=== PATIENT | male | born 1960 | race Caucasian/White ===

== ENCOUNTER 2016-10-29 16:07 | Emergency (ER) | payer MEDICARE ==
--- NOTE | 2016-10-29 16:44 | UC ---
Skin Complaint HPI - HPI Summary HPI Summary: patient has irritation on the hairline from his hat, an infected thumb from a split in his skin on right thumb. and a scab on left arm from a healing burn that is healing well. - History of Current Complaint Chief Complaint: UCSkin Time Seen by Provider: 10/29/16 16:22 Stated Complaint: SKIN COMPLAINT Hx Obtained From: Patient Onset/Duration: Sudden Onset, Lasting Days Skin Exposure Onset/Duration: Days Ago Timing: Constant Onset Severity: Moderate Current Severity: Moderate Pain Intensity: 3 Pain Scale Used: 0-10 Numeric Location: Discrete Character: Pruritus, Raised Aggravating: Wind, Clothing Alleviating: Nothing Associated Signs & Symptoms: Positive: Negative - Allergy/Home Medications Allergies/Adverse Reactions: Allergies Allergy/AdvReac Type Severity Reaction Status Date / Time Oxycodone [From Percocet] Allergy Unknown Unknown Verified 10/29/16 16:19 Reaction Details pollen Allergy Congestion Uncoded 10/29/16 16:19 Home Medications: Home Medications Aspirin EC Low Dose* [Ecotrin EC Low Dose*] 81 mg PO DAILY 10/29/16 [History Confirmed 10/29/16] Review of Systems Constitutional: Fever Skin: Rash, Other - scabbed burn, split skin on thumb Eyes: Negative ENT: Negative Respiratory: Negative Cardiovascular: Negative Gastrointestinal: Negative Genitourinary: Negative Motor: Negative Neurovascular: Negative Musculoskeletal: Negative Neurological: Negative Psychological: Negative All Other Systems Reviewed And Are Negative: Yes PMH/Surg Hx/FS Hx/Imm Hx Previously Healthy: Yes Endocrine History Of: Reports: Thyroid Disease Denies: Diabetes Cardiovascular History Of: Reports: Cardiac Disorders - MVP Neurological History Of: Reports: TIA - Surgical History Surgical History: Yes Surgery Procedure, Year, and Place: chest tube placement, back surgery (patient unclear about operation, fusion?); right leg benign tumor - Family History Known Family History: Positive: Hypertension - Social History Alcohol Use: Rare Substance Use Type: Marijuana Substance Use Comment - Amount & Last Used: occasional Smoking Status (MU): Former Smoker - Immunization History Most Recent Influenza Vaccination: none Most Recent Tetanus Shot: 10/10/14 Most Recent Pneumonia Vaccination: never Physical Exam Triage Information Reviewed: Yes Appearance: Well-Appearing, Well-Nourished, Pain Distress Vital Signs: Initial Vital Signs Temp 98.5 F 10/29/16 16:13 Pulse 65 10/29/16 16:13 Resp 18 10/29/16 16:13 BP 141/74 10/29/16 16:13 Pulse Ox 96 10/29/16 16:13 Vital Signs Reviewed: Yes Eye Exam: Normal Eyes: Positive: Conjunctiva Clear ENT Exam: Normal ENT: Positive: Normal ENT inspection, Pharynx normal, TMs normal Dental Exam: Normal Neck exam: Normal Neck: Positive: Supple, Nontender, No Lymphadenopathy Respiratory Exam: Normal Respiratory: Positive: Chest non-tender, Lungs clear, Normal breath sounds Cardiovascular Exam: Normal Cardiovascular: Positive: RRR, No Murmur, Pulses Normal Abdominal Exam: Normal Abdomen Description: Positive: Nontender, No Organomegaly, Soft Bowel Sounds: Positive: Present Musculoskeletal Exam: Normal Musculoskeletal: Positive: Strength Intact, ROM Intact, No Edema Neurological Exam: Normal Neurological: Positive: Alert, Muscle Tone Normal Psychological Exam: Normal Skin: Positive: significant lesion(s) - oozing wound from split on thumb, red raised patch of skin accross the hairline where his hat rubbed. Course/Dx - Course Course Of Treatment: hx obtained, exam performed, medication prescribed. - Differential Diagnoses - Skin Complaint Differential Diagnoses: Abscess, Cellulitis, Drug Rash, Scabies, Urticaria - Diagnoses Provider Diagnoses: skin infection. contact dermatitis Discharge - Discharge Plan Condition: Stable Disposition: HOME Prescriptions: Hydrocortisone 2.5% CREAM(NF) 1 applic TOPICAL BID #1 tube Mupirocin 2% CREAM* [Bactroban 2% CREAM*] 1 applic TOPICAL BID #1 tube Patient Education Materials: Contact Dermatitis (ED) Additional Instructions: take the medication as prescribed. Keep your hands clean and dry, continue to use the lanolin on the dry skin to heal the cracked areas.
[2016-10-29 16:51] VITALS: BP 141/74
== END 2016-10-29 16:57 | disposition home or self-care (01) ==
LOC: UCCORT 16:07
DX: L08.9 Local infection of the skin and subcutaneous tissue, unspecified (principal); L25.9 Unspecified contact dermatitis, unspecified cause; F12.90 Cannabis use, unspecified, uncomplicated; Z87.891 Personal history of nicotine dependence; Z79.82 Long term (current) use of aspirin; Z88.5 Allergy status to narcotic agent
CPT/HCPCS: 99212; G0463

== ENCOUNTER 2017-07-28 11:03 | Emergency (ER) | payer MEDICARE ==
[2017-07-28 11:17] VITALS: BP 121/77
--- NOTE | 2017-07-28 12:05 | UC ---
Throat Pain/Nasal Juanito HPI - HPI Summary HPI Summary: FIVE DAYS OF SINUS CONGESTION, SORE THROAT, COUGH. SINUS PRESSURE. WORSE LAST TWO DAYS. NO FEVER. - History of Current Complaint Chief Complaint: UCRespiratory Stated Complaint: COUGH,SINUS Time Seen by Provider: 07/28/17 11:25 Hx Obtained From: Patient Onset/Duration: Gradual Onset, Lasting Days Severity: Moderate Pain Intensity: 9 Pain Scale Used: 0-10 Numeric Cough: Productive Associated Signs & Symptoms: Positive: Hoarseness, Sinus Discomfort, Nasal Discharge - Epiglottits Risk Factors Epiglottis Risk Factors: Negative - Allergies/Home Medications Allergies/Adverse Reactions: Allergies Allergy/AdvReac Type Severity Reaction Status Date / Time Oxycodone [From Percocet] Allergy Unknown Unknown Verified 07/28/17 11:17 Reaction Details pollen Allergy Congestion Uncoded 07/28/17 11:17 PMH/Surg Hx/FS Hx/Imm Hx Previously Healthy: Yes - Surgical History Surgical History: Yes Surgery Procedure, Year, and Place: chest tube placement, back surgery (patient unclear about operation, fusion?); right leg benign tumor - Family History Known Family History: Positive: Hypertension Negative: Respiratory Disease - Social History Occupation: Employed Full-time Lives: With Family Alcohol Use: Occasionally Substance Use Type: None Substance Use Comment - Amount & Last Used: last night Smoking Status (MU): Former Smoker - Immunization History Most Recent Influenza Vaccination: no Most Recent Tetanus Shot: 10/10/14 Most Recent Pneumonia Vaccination: never Review of Systems Constitutional: Negative Skin: Negative Eyes: Negative ENT: Ear Ache, Nasal Discharge, Sinus Congestion, Sinus Pain/Tenderness Respiratory: Cough Cardiovascular: Negative Gastrointestinal: Negative Genitourinary: Negative Motor: Negative Neurovascular: Negative Musculoskeletal: Negative Neurological: Negative Psychological: Negative Is Patient Immunocompromised?: No All Other Systems Reviewed And Are Negative: Yes Physical Exam Triage Information Reviewed: Yes Appearance: No Pain Distress, Well-Nourished, Ill-Appearing Vital Signs: Initial Vital Signs Temp 98.8 F 07/28/17 11:13 Pulse 68 07/28/17 11:13 Resp 15 07/28/17 11:13 BP 121/77 07/28/17 11:13 Pulse Ox 99 07/28/17 11:13 Vital Signs Reviewed: Yes Eye Exam: Normal ENT: Positive: Hearing grossly normal, Nasal congestion, TM bulging, TM dull Dental Exam: Normal Neck exam: Normal Neck: Positive: Supple, Nontender, No Lymphadenopathy Respiratory Exam: Other - COUGH Respiratory: Positive: Chest non-tender, Lungs clear, Normal breath sounds, No respiratory distress, No accessory muscle use Cardiovascular Exam: Normal Cardiovascular: Positive: RRR, No Murmur, Pulses Normal, Brisk Capillary Refill Abdominal Exam: Normal Musculoskeletal Exam: Normal Musculoskeletal: Positive: Strength Intact, ROM Intact Neurological Exam: Normal Psychological Exam: Normal Skin Exam: Normal Throat Pain/Nasal Course/Dx - Differential Dx/Diagnosis Differential Diagnosis/HQI/PQRI: Influenza, Otitis Media, Pharyngitis, Sinusitis , Tonsillitis, URI Provider Diagnoses: SINUSITIS; UPPER RESPIRATORY INFECTION Discharge - Discharge Plan Condition: Stable Disposition: HOME Prescriptions: Amoxicillin/Clavulanate TAB* [Augmentin TAB 875*] 875 mg PO BID #20 tab Benzonatate CAP* [Tessalon 100 MG CAP*] 100 mg PO TID PRN #15 cap PRN Reason: Cough Fluticasone NASAL SPRAY 50MCG* [Flonase NASAL SPRAY 50MCG*] 2 spray BOTH NARES DAILY #1 btl Patient Education Materials: Sinusitis (ED), Upper Respiratory Infection (ED) Referrals: Rigoberto Chung MD [Primary Care Provider] -
== END 2017-07-28 11:52 | disposition home or self-care (01) ==
LOC: UCCORT 11:03
DX: J32.9 Chronic sinusitis, unspecified (principal); J06.9 Acute upper respiratory infection, unspecified; J30.1 Allergic rhinitis due to pollen; Z88.6 Allergy status to analgesic agent; Z87.891 Personal history of nicotine dependence
CPT/HCPCS: 99212; G0463

== ENCOUNTER 2017-12-05 14:00 | Emergency (ER) | payer MEDICARE ==
[2017-12-05 14:57] VITALS: BP 133/67
--- NOTE | 2017-12-05 15:11 | UC ---
General HPI - HPI Summary HPI Summary: PT IS C/O SUDDEN ONSET HEAD CONGESTION, COUGH, CHEST CONGESTION, BODYACHES AND SUBJECTIVE F/C'S. STATES HE IS STAYING WITH HIS SON, SON'S GIRLFRIEND HAS THE FLU. + WHEEZING BUT NO SOB OR HX LUNG DZ. - History of Current Complaint Chief Complaint: UCRespiratory Stated Complaint: COUGH,CONGESTION Time Seen by Provider: 12/05/17 14:58 Hx Obtained From: Patient Onset/Duration: Sudden Onset Timing: Constant Pain Intensity: 10 Associated Signs & Symptoms: Positive: Cough, Fever, Headache, Wheezing. Negative: Chest Pain, Diarrhea, Dysuria, Diaphoresis, Nausea, SOB - Allergy/Home Medications Allergies/Adverse Reactions: Allergies Allergy/AdvReac Type Severity Reaction Status Date / Time oxycodone Allergy See Comment Verified 12/05/17 14:52 PMH/Surg Hx/FS Hx/Imm Hx Endocrine History: Thyroid Disease - Surgical History Surgical History: Yes Surgery Procedure, Year, and Place: chest tube placement, back surgery (patient unclear about operation, fusion?); right leg benign tumor - Family History Known Family History: Positive: Hypertension Negative: Respiratory Disease - Social History Lives: With Family Alcohol Use: Rare Substance Use Type: None Substance Use Comment - Amount & Last Used: last night Smoking Status (MU): Former Smoker - Immunization History Most Recent Influenza Vaccination: no Most Recent Tetanus Shot: 10/10/14 Most Recent Pneumonia Vaccination: never Vaccination Up to Date: Yes Review of Systems Constitutional: Fever, Chills ENT: Nasal Discharge, Sinus Congestion, Sinus Pain/Tenderness Respiratory: Cough Neurological: Headache Is Patient Immunocompromised?: No All Other Systems Reviewed And Are Negative: Yes Physical Exam Triage Information Reviewed: Yes Appearance: Well-Appearing Vital Signs: Initial Vital Signs Temp 98.2 F 12/05/17 14:53 Pulse 61 12/05/17 14:53 Resp 16 12/05/17 14:53 BP 133/67 12/05/17 14:53 Pulse Ox 97 12/05/17 14:53 Vital Signs Reviewed: Yes Eye Exam: Normal ENT: Positive: Pharynx normal, Nasal congestion, TMs normal. Negative: Nasal drainage, Sinus tenderness Respiratory: Positive: Lungs clear, Normal breath sounds, No respiratory distress, Other: - COUGH IS CONGESTED Abdomen Description: Positive: Nontender, No Organomegaly, Soft Bowel Sounds: Positive: Present Neurological: Positive: Alert Psychological: Positive: Age Appropriate Behavior Skin Exam: Normal Course/Dx - Course Course Of Treatment: nothing on exam to suggest bacterial infection thus no antibiotic. Abrupt onset and s/s's are GAYATHRI, will tx atamiflu and albuterol - Differential Dx - Multi-Symptom Provider Diagnoses: Influenza like illness Discharge - Discharge Plan Condition: Stable Disposition: HOME Prescriptions: Albuterol HFA INHALER* [Ventolin HFA Inhaler*] 2 puff INH Q6H 14 Days #1 mdi Oseltamivir CAP* [Tamiflu CAP*] 75 mg PO BID 5 Days #10 cap Patient Education Materials: Influenza (ED) Referrals: Non Staff,Doctor [Primary Care Provider] - Additional Instructions: FOLLOW UP WITH YOUR DOCTOR, DR BARNES IN 5 DAYS FOR A RECHECK OR SOONER IF WORSE.
== END 2017-12-05 15:18 | disposition home or self-care (01) ==
LOC: UCCORT 14:00
DX: R09.81 Nasal congestion (principal); R05 Cough; R09.89 Other specified symptoms and signs involving the circulatory and respiratory systems; R52 Pain, unspecified; R50.9 Fever, unspecified; Z87.891 Personal history of nicotine dependence
CPT/HCPCS: 99212; G0463

== ENCOUNTER 2018-08-09 12:04 | Emergency (ER) | payer MEDICARE ==
[2018-08-09 13:06] VITALS: BP 119/73
--- NOTE | 2018-08-09 13:16 | UC ---
General HPI - HPI Summary HPI Summary: PT C/O SORE THROAT, EARS CLOGGED, SINUS PAIN WITH CONGESTION AND GREEN DRAINAGE PLUS COUGH AND CHEST CONGESTION BUT NO CP. SUBJECTIVE F/C'S. NO HX ASTHMA OR COPD. OCCASIONAL WHEEZING. ILL FOR OVER A WEEK. - History of Current Complaint Chief Complaint: UCRespiratory Stated Complaint: SINUSES, LEFT EAR PAIN Time Seen by Provider: 08/09/18 13:04 Hx Obtained From: Patient Onset/Duration: Gradual Onset Timing: Constant Pain Intensity: 9 Associated Signs & Symptoms: Positive: Cough, Fever, Wheezing. Negative: Chest Pain, SOB - Allergy/Home Medications Allergies/Adverse Reactions: Allergies Allergy/AdvReac Type Severity Reaction Status Date / Time oxycodone Allergy See Comment Verified 08/09/18 12:56 Home Medications: Home Medications Aspirin 81 mg CHEW TAB* [Aspirin Low Dose TAB*] 81 mg PO DAILY 08/09/18 [ History Confirmed 08/09/18] Levothyroxine TAB* [Synthroid TAB*] 88 mcg PO DAILY 08/09/18 [History Confirmed 08/09/18] PMH/Surg Hx/FS Hx/Imm Hx Endocrine History: Thyroid Disease - Surgical History Surgical History: Yes Surgery Procedure, Year, and Place: chest tube placement, back surgery (patient unclear about operation, fusion?); right leg benign tumor - Family History Known Family History: Positive: Hypertension Negative: Respiratory Disease - Social History Occupation: Retired Alcohol Use: Rare Substance Use Type: None Substance Use Comment - Amount & Last Used: last night Smoking Status (MU): Former Smoker - Immunization History Most Recent Influenza Vaccination: no Most Recent Tetanus Shot: 10/10/14 Most Recent Pneumonia Vaccination: never Vaccination Up to Date: Yes Review of Systems Constitutional: Fever, Chills Skin: Negative Eyes: Negative ENT: Sore Throat, Ear Ache, Nasal Discharge, Sinus Congestion, Sinus Pain/ Tenderness Respiratory: Cough Cardiovascular: Negative Gastrointestinal: Negative Genitourinary: Negative Motor: Negative Neurovascular: Negative Musculoskeletal: Negative Neurological: Negative Psychological: Negative Is Patient Immunocompromised?: No All Other Systems Reviewed And Are Negative: Yes Physical Exam Triage Information Reviewed: Yes Appearance: Well-Appearing Vital Signs: Initial Vital Signs Temp 97.9 F 08/09/18 12:58 Pulse 55 08/09/18 12:58 Resp 16 08/09/18 12:58 BP 119/73 08/09/18 12:58 Pulse Ox 97 08/09/18 12:58 Vital Signs Reviewed: Yes Eyes: Positive: Conjunctiva Clear ENT: Positive: Pharynx normal, Nasal congestion, TMs normal, Sinus tenderness. Negative: Nasal drainage Neck: Positive: Supple, Nontender, No Lymphadenopathy Respiratory: Positive: Lungs clear, No respiratory distress, Decreased breath sounds. Negative: Crackles, Rhonchi, Wheezing Cardiovascular: Positive: RRR, No Murmur Abdomen Description: Positive: Nontender, No Organomegaly, Soft Bowel Sounds: Positive: Present Musculoskeletal: Positive: ROM Intact Neurological: Positive: Alert Psychological: Positive: Age Appropriate Behavior Skin Exam: Normal Course/Dx - Differential Dx - Multi-Symptom Provider Diagnoses: SINUSITIS. BRONCHITIS Discharge - Sign-Out/Discharge Documenting (check all that apply): Patient Departure All imaging exams completed and their final reports reviewed: No Studies - Discharge Plan Condition: Stable Disposition: HOME Prescriptions: Albuterol HFA INHALER* [Ventolin HFA Inhaler*] 2 puff INH Q6H #1 mdi Amoxicillin/Clavulanate TAB* [Augmentin TAB 875*] 875 mg PO BID 10 Days #20 tab Patient Education Materials: Sinusitis (ED), Acute Bronchitis (ED) Referrals: PAULINA Llanos [Medical Doctor] - 7 Days - Billing Disposition and Condition Condition: STABLE Disposition: Home
== END 2018-08-09 13:25 | disposition home or self-care (01) ==
LOC: UCCORT 12:04
DX: J32.9 Chronic sinusitis, unspecified (principal); J40 Bronchitis, not specified as acute or chronic; E07.9 Disorder of thyroid, unspecified; Z87.891 Personal history of nicotine dependence; Z88.5 Allergy status to narcotic agent
CPT/HCPCS: 99212; G0463

== ENCOUNTER 2018-10-11 13:05 | Emergency (ER) | payer MEDICARE ==
[2018-10-11 14:22] VITALS: BP 132/69
--- NOTE | 2018-10-11 15:27 | UC ---
Throat Pain/Nasal Juanito HPI - HPI Summary HPI Summary: Patient presents to urgent care with 5 days progressive frontal sinus pressure ear fullness and right maxillary pressure. Patient with green nasal discharge. Patient with postnasal drip causing him to cough. Patient reports chills but no documented fever. Patient is not taking any [id number] medication. Patient works in construction with multiple sick contacts. Patient has a history of sinus or ear surgery. Patient is not immunocompromised. Patient is on medication for thyroid but not blood pressure cardiac. Patient's without any other complaints. Patient's medications reviewed this visit. Patient is not immunocompromised. - History of Current Complaint Chief Complaint: UCRespiratory Stated Complaint: SINUS,CONGESTION Time Seen by Provider: 10/11/18 15:17 Hx Obtained From: Patient Onset/Duration: Gradual Onset Severity: Severe Pain Intensity: 9 Pain Scale Used: 0-10 Numeric Cough: Nonproductive - Allergies/Home Medications Allergies/Adverse Reactions: Allergies Allergy/AdvReac Type Severity Reaction Status Date / Time oxycodone Allergy See Comment Verified 10/11/18 14:18 PMH/Surg Hx/FS Hx/Imm Hx Previously Healthy: Yes Endocrine History: Thyroid Disease - Surgical History Surgical History: Yes Surgery Procedure, Year, and Place: chest tube placement, back surgery (patient unclear about operation, fusion?); right leg benign tumor - Family History Known Family History: Positive: Hypertension, Non-Contributory Negative: Respiratory Disease - Social History Occupation: Employed Full-time - construction Lives: Alone Alcohol Use: Rare Substance Use Type: None Substance Use Comment - Amount & Last Used: last night Smoking Status (MU): Former Smoker Length of Time of Smoking/Using Tobacco: On and Off for 10 Years When Did the Patient Quit Smoking/Using Tobacco: ~1980s - Immunization History Most Recent Influenza Vaccination: no Most Recent Tetanus Shot: 10/10/14 Most Recent Pneumonia Vaccination: never Vaccination Up to Date: Yes Review of Systems All Other Systems Reviewed And Are Negative: Yes Constitutional: Positive: Fever - tactile Eyes: Positive: Negative ENT: Positive: Nasal Discharge, Sinus Congestion, Sinus Pain/Tenderness Respiratory: Positive: Cough Physical Exam - Summary Physical Exam Summary: Vital Signs Reviewed: Yes A+Ox3, no distress, congestion Eyes: Conjunctiva Clear, JOEC. EOM intact and full ENT: Hearing grossly normal right TM mild fluid, left WNL turbinated boggy and inflammed + TTO max sinus R>L b.l frontal sinus + mmmoist, no exudate, no erythema. uvula midline Neck: Positive: Supple Respiratory: Positive: No respiratory distress, No accessory muscle use + CTA throughout no w/r Cardiovascular: RRR nl s1, s2 no m/r CBT <2 sec abd soft + BS nt/nd no guarding, no distension Musculoskeletal Exam: GREEN x 4 without difficulty Strength Intact, ROM Intact Neurological: Positive: Alert, + sensation throughout Psychological: Positive: Normal Response To Family Skin: Positive: no rash, no ecchymosis Triage Information Reviewed: Yes Vital Signs: Initial Vital Signs Temp 98.1 F 10/11/18 14:16 Pulse 58 10/11/18 14:16 Resp 16 10/11/18 14:16 BP 132/69 10/11/18 14:16 Pulse Ox 97 10/11/18 14:16 Throat Pain/Nasal Course/Dx - Course Course Of Treatment: Patient presents to urgent care with 5 days progressive head congestion laxity sinus congestion postnasal drip and now cough. Patient reports green secretions from his nasal passages. Patient's not taking any over -the-counter medications. Patient with tactile temperatures. On exam vital signs are stable. Patient with exam consistent vital signs patient prescribe Flonase as well as amoxicillin. Discussed with patient secretion precautions including his dental bridge. Hydrate. Humidify. Return precautions. Patient comfortable in agreement with plan. Patient declined note for work. - Differential Dx/Diagnosis Provider Diagnosis: Rhinosinusitis Discharge - Sign-Out/Discharge Documenting (check all that apply): Patient Departure All imaging exams completed and their final reports reviewed: No Studies - Discharge Plan Condition: Stable Disposition: HOME Prescriptions: Amoxicillin PO (*) [Amoxicillin 875 MG (*)] 875 mg PO BID #20 tab Patient Education Materials: Rhinosinusitis (ED) Referrals: No Primary Care Phys,NOPCP [Primary Care Provider] - Additional Instructions: - Stay well hydrated. Drink plenty of non-alcoholic, non-caffinated beverages. - Alternate ibuprofen (Advil, Motrin) 600mg and Tylenol every 3 hours for pain or fever. Take with food. Do NOT take for more than 4-5 days. - These infections are spread by secretions - do NOT share eating or drinking utensils - clean items you share with other people such as cell phones, computer mouse, TV remote, computer tablets,etc. Once you have been antibiotics for 2 days, change your toothbrush and your pillowcase. - get plenty of restful sleep - humidify the air in the room where you sleep - boil water, run a hot steam shower, vaporizer, cups of water by heat register - okay to take over the counter decongestant and cough medication - use nasal spray as prescribed - contact your doctor or return with questions or concerns - Billing Disposition and Condition Condition: STABLE Disposition: Home
== END 2018-10-11 15:37 | disposition home or self-care (01) ==
LOC: UCCORT 13:05
DX: J32.9 Chronic sinusitis, unspecified (principal); Z88.5 Allergy status to narcotic agent; E07.9 Disorder of thyroid, unspecified; Z87.891 Personal history of nicotine dependence
CPT/HCPCS: 99212; G0463

== ENCOUNTER 2018-11-29 10:25 | Emergency (ER) | payer MEDICARE ==
[2018-11-29 10:40] VITALS: BP 138/83
[2018-11-29] MEDS ORDERED: Ibuprofen TAB* 600 MG PO ONE (10:57)
[2018-11-29] MEDS ORDERED: Ondansetron ODT TAB* 4 MG PO ONE (10:57)
--- NOTE | 2018-11-29 11:02 | UC ---
General HPI - HPI Summary HPI Summary: 58-year-old male 58-year-old male with a variety of complaints. Talks about being of ill for 3 weeks. He also describes 3 days of symptoms of headache body ache nausea and vomiting. He said his ibuprofen that he took helped for about 4 minutes. No complaint of any chest pain or shortness of breath. - History of Current Complaint Chief Complaint: UCRespiratory Stated Complaint: CHEST CONGESTION,ACHES Time Seen by Provider: 11/29/18 10:50 Pain Intensity: 5 - Allergy/Home Medications Allergies/Adverse Reactions: Allergies Allergy/AdvReac Type Severity Reaction Status Date / Time oxycodone Allergy See Comment Verified 11/29/18 10:35 PMH/Surg Hx/FS Hx/Imm Hx Previously Healthy: Yes Endocrine History: Hypothyroidism - Surgical History Surgical History: Yes Surgery Procedure, Year, and Place: chest tube placement, back surgery (patient unclear about operation, fusion?); right leg benign tumor - Family History Known Family History: Positive: Hypertension, Non-Contributory Negative: Respiratory Disease - Social History Alcohol Use: Rare Substance Use Type: None Substance Use Comment - Amount & Last Used: last night Smoking Status (MU): Former Smoker Length of Time of Smoking/Using Tobacco: On and Off for 10 Years When Did the Patient Quit Smoking/Using Tobacco: ~1980s - Immunization History Most Recent Influenza Vaccination: no Most Recent Tetanus Shot: unkown Most Recent Pneumonia Vaccination: never Vaccination Up to Date: Yes Review of Systems All Other Systems Reviewed And Are Negative: Yes Constitutional: Positive: Other - see hpi Skin: Positive: Rash - head is red Eyes: Positive: Negative ENT: Positive: Sore Throat, Nasal Discharge, Sinus Congestion Respiratory: Positive: Shortness Of Breath Cardiovascular: Positive: Negative Gastrointestinal: Positive: Abdominal Pain, Vomiting, Nausea Genitourinary: Positive: Negative Motor: Positive: Negative Neurovascular: Positive: Negative Musculoskeletal: Positive: Myalgia Neurological: Positive: Headache Psychological: Positive: Negative Is Patient Immunocompromised?: No Physical Exam Triage Information Reviewed: Yes Appearance: Well-Nourished, Ill-Appearing - mild, Pain Distress - mild Vital Signs: Initial Vital Signs Temp 97.8 F 11/29/18 10:33 Pulse 72 11/29/18 10:33 Resp 18 11/29/18 10:33 BP 138/83 11/29/18 10:33 Pulse Ox 98 11/29/18 10:33 Vital Signs Reviewed: Yes Eye Exam: Normal Eyes: Positive: Conjunctiva Clear ENT: Positive: Pharyngeal erythema, Nasal congestion, Nasal drainage, TMs normal Neck exam: Normal Neck: Positive: Supple Respiratory: Positive: Lungs clear, Normal breath sounds, No respiratory distress Cardiovascular: Positive: RRR Abdomen Description: Positive: Nontender, Soft Bowel Sounds: Positive: Present Musculoskeletal Exam: Normal Musculoskeletal: Positive: Strength Intact, ROM Intact Neurological Exam: Normal Neurological: Positive: Alert, Muscle Tone Normal Psychological Exam: Normal Psychological: Positive: Age Appropriate Behavior Skin Exam: Normal Diagnostics - EKG Cardiac Rate: NL - at 1039 Cardiac Rhythm: Sinus: Normal - 77bpm Ectopy: None ST Segment: Normal - lvh Course/Dx - Course Course Of Treatment: Patient has a multitude of symptoms. He has had fevers chills nausea and body aches for the last 3 days which is consistent with influenza and also consistent with his influenza swabbing positive. Therefore we will treat for influenza. The patient know if he feels worse or has any other questions or concerns she needs get reevaluated most likely in the emergency department. - Diagnoses Provider Diagnosis: Influenza Discharge - Sign-Out/Discharge Documenting (check all that apply): Patient Departure All imaging exams completed and their final reports reviewed: No Studies - Discharge Plan Condition: Stable Disposition: HOME Prescriptions: Ondansetron ODT TAB* [Zofran 4 MG Odt TAB*] 4 mg PO Q6H PRN #10 tab.odt PRN Reason: Nausea Oseltamivir CAP* [Tamiflu CAP*] 75 mg PO BID #10 cap Patient Education Materials: Influenza (ED) Referrals: [facility] [place] [facility] [Outside] Additional Instructions: FOLLOW UP WITH YOUR DOCTOR IF NOT COMPLETELY IMPROVED. GET RECHECKED FOR ANY WORSENING OF YOUR CONDITION OR QUESTIONS OR CONCERNS. - Billing Disposition and Condition Condition: STABLE Disposition: Home
[2018-11-29 11:07] LABS: Influenza A Molecular POSITIVE (Negative)
== END 2018-11-29 11:37 | disposition home or self-care (01) ==
LOC: UCCORT 10:25
DX: J11.1 Influenza due to unidentified influenza virus with other respiratory manifestations (principal); Z88.5 Allergy status to narcotic agent; Z87.891 Personal history of nicotine dependence
CPT/HCPCS: 93005; 99212; A9270-GY; G0463